=== PATIENT | male | born 1930 | race Two or more races ===

== ENCOUNTER → 2016-12-13 | Outpatient (CLI) | payer MEDICARE, OTHER ==
[2016-03-31 05:07] VITALS: BP 166/93
[~2016-12-13] MED LIST: AMLO5TAB4 PO; ATOR10TA PO; Aspirin PO; CHOL100013 PO; DESV50TA PO; DIGO250T PO; DONE5TAB56 PO; DONE5TAB7 PO; FAMO20TA5 PO; FINA5TAB4 PO; GABA-586 PO; GLUC100018 PO; LEVO100T PO; LEVO112T4 PO; LEVO75TA5 PO; MEMA28CA PO; Metoprolol Tartrate PO; ONDA4TAB10 SL; POLY17PO29 PO; POTA10TA5 PO; TRAM50TA PO; TRAZ50TA15 PO; WARF2TAB7 PO
--- NOTE | 2016-12-13 16:50 | CARD ---
APPROVED REPORT EXAM: Two-dimensional and M-mode echocardiogram with Doppler and color Doppler. Other Information Quality : Average Rhythm : NSR INDICATION Aortic Valve Disease AVR 2D DIMENSIONS Left Atrium(2D)3.5 (1.6-4.0cm)IVSd1.3 (0.7-1.1cm) Aortic Root(2D)3.4 (2.0-3.7cm)LVDd4.4 (3.9-5.9cm) LVOT Diameter2.3 (1.8-2.4cm)PWd1.3 (0.7-1.1cm) LVDs3.6 (2.5-4.0cm)FS (%) 27.5 % SV31.8 mlLVEF(%)55.0 (>50%) Aortic Valve AoV Peak Angel.297.0cm/sAoV VTI55.1cm AO Peak GR.35.3mmHgLVOT Peak Angel.110.5cm/s LVOT VTI 22.91cmAO Mean GR.20mmHg JAMIL (VTI)1.69cm2 Mitral Valve MV E Mixqekrg38.7cm/sMV DECEL [id number] MV A Nultfpfp032.0cm/sMV VNL11hu E/A Ratio0.7MV A Kvotquzq218wv MVA (PHT)2.51cm2 TDI E/Lateral E'10.2E/Medial E'12.7 Pulmonary Valve PV Peak Mjccukup077.9cm/sPV Peak Grad.5mmHg RVOT VTI20.6cm Tricuspid Valve TR P. [id number]/sRAP [id number] TR Peak Gr.[id number] LEFT VENTRICLE The left ventricle is normal size. There is borderline to mild concentric left ventricular hypertroph y. The left ventricular systolic function is normal and the ejection fraction is within normal range. The Ejection Fraction is 55%. Septal motion consistent with post-operative state. Tissue Doppler juanita ging reveals mild left ventricular diastolic dysfunction. Transmitral Doppler flow pattern is Grade I -abnormal relaxation pattern. There is no ventricular septal defect visualized. RIGHT VENTRICLE The right ventricle is normal size. The right ventricular systolic function is normal. ATRIA The left atrium size is normal. The right atrium size is normal. The interatrial septum is intact wit h no evidence for an atrial septal defect or patent foramen ovale as noted on 2-D or Doppler imaging. 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 The prosthetic aortic wendie ve appears to open well. Bioprosthesis leaflets are thin and move normally. MITRAL VALVE Mitral annular calcification is moderate. There is no mitral valve stenosis. Doppler and Color Flow r evealed trace mitral regurgitation. TRICUSPID VALVE The tricuspid valve is not well visualized. Doppler and Color Flow revealed trace to mild tricuspid r egurgitation. The PA pressure was estimated at 31 mmHg. There is no tricuspid valve stenosis. PULMONIC VALVE The pulmonic valve is not well visualized. Doppler and Color Flow revealed no pulmonic valvular regur gitation. There is no pulmonic valvular stenosis. GREAT VESSELS The aortic root is normal in size. The ascending aorta is moderately dilated measuring 3.9 cm. Normal pulmonary venous flow (Doppler). The IVC is normal in size and collapses >50% with inspiration. PERICARDIAL EFFUSION There is no evidence of significant pericardial effusion. Critical Notification Critical Value: No <Conclusion> There is borderline to mild concentric left ventricular hypertrophy. The left ventricular systolic function is normal and the ejection fraction is within normal range. The Ejection Fraction is 55%. Tissue Doppler imaging reveals mild left ventricular diastolic dysfunction. Transmitral Doppler flow pattern is Grade I-abnormal relaxation pattern. The left atrium size is normal. The right atrium size is normal. 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 The prosthetic aortic valve appears to open well. Bioprosthesis leaflets are thin and move normally. Doppler and Color Flow revealed trace mitral regurgitation. Mitral annular calcification is moderate. Doppler and Color Flow revealed trace to mild tricuspid regurgitation. The PA pressure was estimated at 31 mmHg. The pulmonic valve is not well visualized. The ascending aorta is moderately dilated measuring 3.9 cm. There is no evidence of significant pericardial effusion.
== END | disposition home or self-care (01) ==
LOC: ECHO 14:05
PROVIDERS: ATTEND Internal Medicine Cardiovascular Disease
DX: I08.1 Rheumatic disorders of both mitral and tricuspid valves (principal)
CPT/HCPCS: 93306